=== PATIENT | male | born 1970 | race American Indian/Alaskan Native ===

== ENCOUNTER 2017-03-23 18:29 | Emergency (ER) | payer SELFPAY ==
[2017-03-23 18:29] VITALS: BMI 21.9
[2017-03-23 18:35] VITALS: BP 120/70; PULSE 67; RESP 16; TEMP 98.7; O2SAT 100
== END 2017-03-23 19:25 | disposition home or self-care (01) ==
LOC: H.ER 18:29
DX: Z02.89 Encounter for other administrative examinations (principal)